=== PATIENT | female | born 1995 | race Caucasian/White ===

== ENCOUNTER 2020-02-15 21:54 | Observation (INO) | payer MEDICAID, SELFPAY ==
--- NOTE | 2020-02-15 | ECG_ITS ---
Test Reason : CHEST PAIN Blood Pressure : / mmHG Vent. Rate : 096 BPM Atrial Rate : 096 BPM P-R Int : 136 ms QRS Dur : 078 ms QT Int : 346 ms P-R-T Axes : 050 042 055 degrees QTc Int : 437 ms Normal sinus rhythm Normal ECG No previous ECGs available Referred By: Jonelle Sheets Electronically Signed By:ANGÉLICA BACON MD
--- NOTE | 2020-02-15 22:05 | ED_ITS ---
HPI - Chest Pain General Chief Complaint: Chest Pain Stated Complaint: CHEST PAIN Time Seen by Provider: 02/15/20 22:05 Source: patient Mode of arrival: ambulatory Limitations: no limitations History of Present Illness MD complaint: chest pain and other (upper abdominal pain) Pertinent past history: other (s/p c section 2 weeks ago ) Onset (ago): hour(s) (7 hours ago) Timing of current episode: constant Onset: during rest and during exertion Pain location: left chest Pain radiation: none Severity: moderate Quality: sharp Relieving factors: nothing Exacerbating factors: inspiration and movement Context: recent surgery and recent immobilization Associated symptoms: dyspnea Treatment prior to arrival: none Related Data Home Medications Medication Instructions Recorded Confirmed ferrous sulfate [Iron (ferrous 325 mg PO DAILY 02/16/20 02/16/20 sulfate)] ibuprofen [Motrin] 500 mg PO Q6H 02/16/20 02/16/20 Previous Rx's Medication Instructions Recorded famotidine [Pepcid] 20 mg PO DAILY #30 tab 02/16/20 ondansetron 4 mg PO Q8H PRN #20 tab 02/16/20 oxycodone 5 mg PO TID PRN #10 cap 02/16/20 Allergies Allergy/AdvReac Type Severity Reaction Status Date / Time kiwi [KIWI] Allergy Severe ANAPHYLAXIS Verified 02/16/20 03:33 Review of Systems Review of Systems: Constitutional : No Weight loss, No Fever, No Chills ENT/Mouth : No sore throat, No Rhinorrhea Eyes: No Eye Pain, No Swelling Cardiovascular : pos Chest Pain, pos SOB, no Dyspnea on Exertion, No Orthopnea, No Edema, No Palpitations Respiratory : No Cough, No Sputum Gastrointestinal : pos Nausea, No Vomiting, No Diarrhea, POS abdominal Pain, No Hematochezia, No Melena Genitourinary : No Dysuria, No Urinary Frequency Musculoskeletal : No joint pain, No Myalgias, No Joint Swelling Skin : No Skin Lesions, No rash Neuro : No Weakness, No Numbness, No Dizziness, No Headache Psych : No Anxiety/Panic, No Depression Heme/Lymph: No Bruising, No Lymphadenopathy Endocrine : No Polyuria, No Polydipsia All other systems reviewed and are negative PMFSH Past Medical History Attestation statement: The following information was validated with the patient. Medical History (Updated 02/16/20 @ 02:49 by Jonelle Sheets DO) No known health problems Surgical History (Updated 02/15/20 @ 22:17 by Jonelle Sheets DO) Previous section Social History Social History (Updated 02/15/20 @ 22:17 by Jonelle Sheets DO) Alcohol intake: never Smoking Status: Never smoker Use of substances other than those prescribed or required for medical reasons: No Advance Directives: No Advance Directives Information Provided: Yes Physical Exam Vital Signs: Vital Signs: Last Vital Signs Temp 98.3 F 02/16/20 02:54 Pulse 64 02/16/20 02:54 Resp 16 02/16/20 02:54 BP 119/75 02/16/20 02:54 Pulse Ox 95 02/16/20 02:54 Body Mass Index 56.9 Appearance: Alert. Oriented X3. No acute distress. Eyes: Pupils equal, round and reactive to light. ENT: Pharynx normal. Neck: Normal inspection. Neck supple. CVS: Normal heart rate and rhythm. Pulses normal. Chest: ttp along L lower chest wall that reproduces pain Respiratory: No respiratory distress. Breath sounds normal. Abdomen: Soft and mild epigastric ttp mild Smallwood's sign. incision is c/d/i and well healed Skin: Skin warm and dry. slightly pale skin color. Normal skin turgor. Extremities: No lower extremity edema. No calf ttp Neuro: Oriented X 3. No motor deficit. No sensory deficit. Course Course Course Narrative: no RUQ pain but has elevated liver enzymes normal plts and normal BP seems atypical for HELLP - US ordered to assess liver and GB call from Radiology 1248am - no PE noted in lungs, patulous esophagus ?mass possible cannot rule out, no perforation noted would recommend gastrograffin and study to assess for any disease increase in LFTs but no other signs of HELLP (has normal bili, no overt anemia out of expected proportion, normal plts, LDH under 600, normal BP, no edema, no signs of bleeding on US) and she has RUQ pain and pos Smallwood's sign on exam and US suspect this is GB pathology - she does not want to stay I told her she likely needs her gallbladder out given her she needs to go home and figure out childcare upon discharge the patient now agrees to stay will send message to Dr. Garcia and review case infection suspected of GB at this time now that patient is staying - 247am, cultures, lactic acid ordered Dr. Garcia will admit patient recommends starting zosyn and will admit discussed lab and US findings with Dr. Arias just to confirm this is not HELLP - no signs of HELLP at this time after review MDM - Chest Pain MDM Narrative Medical decision making narrative: 24 yo female s/p section 2 weeks ago no issues during per her did have some blood loss during surgery per her reports comes in with L sided pleuritic chest pain that is reproduceable in nature along with epigastric and RUQ pain at this time will need labs, EKG, CTA:PE for VTE given high risk, refuses medications for pain at this time, unlikely to be ACS but troponin at 6 hr diane ordered, patient is not , could also be abdominal pathology - HELLP labs ordered Differential Diagnosis Differential diagnosis: Likely atypical chest pain and costochondritis Lab Data Result diagrams: 02/15/20 22:17 02/15/20 22:17 Labs: Lab Results 02/15/20 02/15/20 02/15/20 Range/Units 22:17 22:17 22:17 WBC 14.3 H (4.8-10.8) X10*3/uL RBC 4.08 L (4.20-5.50) X10*6/uL Hgb 11.8 L (12.0-16.0) g/dl Hct 36.5 L (37-47) % MCV 89.5 (80-98) fL MCH 28.9 (27.0-33.0) pg MCHC 32.3 (31.0-35.0) g/dl RDW 12.2 (11.0-16.0) % Plt Count 462 H (160-400) X10*3/uL MPV 9.3 L (9.4-12.3) fL Immature Gran % (Auto) 0.4 (0.0-0.4) % Neut % (Auto) 83.9 H (45-73) % Lymph % (Auto) 7.9 L (20-40) % [place] % (Auto) 6.2 (2-11) % Eos % (Auto) 1.3 (0-4) % Baso % (Auto) 0.3 (0-2) % Lymph # (Auto) 1.1 L (1.2-4.9) X10*3/uL [place] # (Auto) 0.9 (0.1-1.2) X10*3/uL Eos # (Auto) 0.2 (0.0-0.4) X10*3/uL Baso # (Auto) 0.1 (0.0-0.2) X10*3/uL Abs Immat Gran (auto) 0.06 H (0.00-0.03) X10*3/uL Absolute Neuts (auto) 12.0 H (2.0-8.3) X10*3/uL Absolute Nucleated RBC 0.000 (0.0-0.012) X10*3/uL Nucleated RBC % (auto) 0.0 (0.0-0.2) /100WBC PT 11.7 (10.8-13.0) SEC INR 1.0 (0.9-1.1) APTT 34.2 (24.1-38.0) SEC Sodium 139 (135-145) mmol/L Potassium 4.0 (3.3-5.1) mmol/l Chloride 102 (96-108) mmol/L Carbon Dioxide 25 (22-29) mmol/L Anion Gap 16 (12-20) BUN 9 (9-16) mg/dL Creatinine 0.88 (0.5-1.4) mg/dL Estim Creat Clear Calc 153.6 Estimated GFR > 60 Random Glucose 113 (60-115) mg/dL Calcium 9.0 (8.4-10.2) mg/dL Magnesium 1.9 (1.6-2.6) mg/dL Total Bilirubin 0.7 (0.0-1.0) mg/dL Direct Bilirubin 0.3 (0.0-0.5) mg/dL AST 92 H (5-31) U/L ALT 57 H (0-31) U/L Alkaline Phosphatase 128 H (39-117) U/L Lactate Dehydrogenase (122-220) U/L Troponin I High Sens (<3.5-17.0) ng/L B-Natriuretic Peptide (<100) pg/mL Total Protein 7.2 (6.5-8.0) g/dL Albumin 4.4 (3.5-5.0) g/dL Lipase 54 (8-78) U/L 11/20/20 11/21/20 Range/Units 22:17 01:19 WBC (4.8-10.8) X10*3/uL RBC (4.20-5.50) X10*6/uL Hgb (12.0-16.0) g/dl Hct (37-47) % MCV (80-98) fL MCH (27.0-33.0) pg MCHC (31.0-35.0) g/dl RDW (11.0-16.0) % Plt Count (160-400) X10*3/uL MPV (9.4-12.3) fL Immature Gran % (Auto) (0.0-0.4) % Neut % (Auto) (45-73) % Lymph % (Auto) (20-40) % [place] % (Auto) (2-11) % Eos % (Auto) (0-4) % Baso % (Auto) (0-2) % Lymph # (Auto) (1.2-4.9) X10*3/uL [place] # (Auto) (0.1-1.2) X10*3/uL Eos # (Auto) (0.0-0.4) X10*3/uL Baso # (Auto) (0.0-0.2) X10*3/uL Abs Immat Gran (auto) (0.00-0.03) X10*3/uL Absolute Neuts (auto) (2.0-8.3) X10*3/uL Absolute Nucleated RBC (0.0-0.012) X10*3/uL Nucleated RBC % (auto) (0.0-0.2) /100WBC PT (10.8-13.0) SEC INR (0.9-1.1) APTT (24.1-38.0) SEC Sodium (135-145) mmol/L Potassium (3.3-5.1) mmol/l Chloride (96-108) mmol/L Carbon Dioxide (22-29) mmol/L Anion Gap (12-20) BUN (9-16) mg/dL Creatinine (0.5-1.4) mg/dL Estim Creat Clear Calc Estimated GFR Random Glucose (60-115) mg/dL Calcium (8.4-10.2) mg/dL Magnesium (1.6-2.6) mg/dL Total Bilirubin (0.0-1.0) mg/dL Direct Bilirubin (0.0-0.5) mg/dL AST 186 H (5-31) U/L ALT 121 H (0-31) U/L Alkaline Phosphatase (39-117) U/L Lactate Dehydrogenase 377 H (122-220) U/L Troponin I High Sens < 3.5 (<3.5-17.0) ng/L B-Natriuretic Peptide < 10 (<100) pg/mL Total Protein (6.5-8.0) g/dL Albumin (3.5-5.0) g/dL Lipase (8-78) U/L ECG Data ECG #1: Attestation: I personally reviewed and interpreted this ECG as follows: ECG interpretation date: 02/15/20 ECG interpretation time: 22:06 Interpretation: Rate: 96 Rhythm: NSR [place]: normal Normal P waves. Normal LI. Normal QRS complex. ST T wave : normal qTC: normal prior studies: no acute ischemia The study has been interpreted contemporaneously by me. . Discharge Plan Discharge Clinical Impression: Elevated liver function tests, Biliary colic, Esophagitis, Cholecystitis Patient Disposition: Admitted As Inpatient
[2020-02-15 22:08] VITALS: BP 113/71; PULSE 92; RESP 15; TEMP 36.9; O2SAT 97; BMI 56.9
[2020-02-15 22:14] VITALS: BP 113/71; PULSE 85; PULSE 92; RESP 15; TEMP 36.9; O2SAT 97
--- NOTE | 2020-02-15 22:14 | PC.NURSE ---
Pt assisted from the waiting room into room 20. EKG obtained in Triage. IV established, labs obtained and sent. MD at bedside for primary eval, pt aware of plan for CTA. Continue to monitor.
[2020-02-15] MEDS: 0.9 % Sodium Chloride 1,000 ML 999 ML IVCONT (22:17)
[2020-02-15 22:25] LABS: Basophils Absolute Auto 0.1 X10*3/uL (0.0-0.2); Basophils Percent Auto 0.3 % (0-2); Eosinophils Absolute Auto 0.2 X10*3/uL (0.0-0.4); Eosinophils Percent Auto 1.3 % (0-4); Hematocrit 36.5 % (37-47); Hemoglobin 11.8 g/dl (12.0-16.0); Imm Gran Abs Auto 0.06 X10*3/uL (0.00-0.03); Imm Gran Pct Auto 0.4 % (0.0-0.4); Lymphocytes Absolute Auto 1.1 X10*3/uL (1.2-4.9); Lymphocytes Percent Auto 7.9 % (20-40); MANUAL DIFF FLAG NO; Mean Corpuscular HGB Conc 32.3 g/dl (31.0-35.0); Mean Corpuscular Hemoglobin 28.9 pg (27.0-33.0); Mean Corpuscular Volume 89.5 fL (80-98); Mean Platelet Volume 9.3 fL (9.4-12.3); Monocytes Absolute Auto 0.9 X10*3/uL (0.1-1.2); Monocytes Percent Auto 6.2 % (2-11); Neutrophils Percent Auto 83.9 % (45-73); Platelet Count 462 X10*3/uL (160-400); Red Blood Count 4.08 X10*6/uL (4.20-5.50); Red Cell Distribution Width 12.2 % (11.0-16.0); White Blood Count 14.3 X10*3/uL (4.8-10.8)
[2020-02-15 22:45] LABS: Prothrombin Time 11.7 SEC (10.8-13.0)
[2020-02-15 22:48] LABS: Partial Thromboplastin Time 34.2 SEC (24.1-38.0)
[2020-02-15 22:50] LABS: Alanine Aminotransferase 57 U/L (0-31); Albumin Level 4.4 g/dL (3.5-5.0); Alkaline Phosphatase 128 U/L (39-117); Anion Gap 16 (12-20); Aspartate Amino Transferase 92 U/L (5-31); Bilirubin Direct 0.3 mg/dL (0.0-0.5); Bilirubin Total 0.7 mg/dL (0.0-1.0); Blood Urea Nitrogen 9 mg/dL (9-16); Carbon Dioxide 25 mmol/L (22-29); Chloride 102 mmol/L (96-108); Creatinine Clr Calc Pharmacy 153.6; Estimated Glomerular Filt Rate > 60; Glucose Random 113 mg/dL (60-115); Lipase 54 U/L (8-78); Magnesium 1.9 mg/dL (1.6-2.6); Sodium 139 mmol/L (135-145); Total Protein 7.2 g/dL (6.5-8.0)
[2020-02-15 22:57] LABS: B Type Natriuretic Peptide < 10 pg/mL (<100); Troponin-I High Sensitivity < 3.5 ng/L (<3.5-17.0)
[2020-02-15 23:09] VITALS: BP 107/74; PULSE 83; RESP 16; TEMP 36.7; O2SAT 100
--- NOTE | 2020-02-16 | US_ITS ---
EXAMINATION: US ABDOMEN LIMITED CLINICAL INFORMATION: Epigastric pain. COMPARISON: None TECHNIQUE: Real-time imaging of the right upper quadrant abdominal viscera. FINDINGS: PANCREAS: The visualized proximal portion of the pancreas is unremarkable. The distal portion is obscured secondary to overlying bowel gas. LIVER: The liver is normal in size. The liver contour is normal. Parenchymal echogenicity is normal. No focal hepatic lesion. There is no intrahepatic biliary duct dilatation seen. GALLBLADDER: Multiple gallstones are present, and there is mild gallbladder wall thickening to 0.5 cm. No appreciable pericholecystic fluid. Right upper quadrant tenderness was reported during the exam. COMMON BILE DUCT: Normal in caliber measuring 0.2 cm in diameter. RIGHT KIDNEY: No hydronephrosis. No renal calculi or focal parenchymal lesions. The kidney measures 11.1 cm in maximum dimension. FREE FLUID: None. US/US abdomen limited IMPRESSION: Cholelithiasis. Mild gallbladder wall thickening is also present, which could represent developing changes of acute cholecystitis in the proper clinical setting.
--- NOTE | 2020-02-16 | CT_ITS ---
EXAMINATION: CT ANGIOGRAM OF THE CHEST WITH AND WITHOUT CONTRAST (CT PULMONARY ANGIOGRAM FOR PE) CLINICAL INFORMATION: Reason for Exam pleuritic chest pain COMPARISON: None TECHNIQUE: Prior to contrast administration, noncontrast localization images were obtained. Subsequently, multidetector volumetric imaging was performed from the thoracic inlet to below the diaphragms following the administration of 80 mL Omnipaque 350 intravenous contrast. No contrast reaction reported Sagittal, coronal, and MIP oblique sagittal reformatted images were obtained on the CT workstation, uploaded to PACS, and reviewed. This CT examination was performed using dose optimization techniques as appropriate, variously including the following: *Automated exposure control *Adjustment of mA and/or kV according to patient size (this includes techniques or standardized protocols for targeted exams where dose is matched to indication/reason for exam; i.e. extremities or head) *Use of iterative reconstruction technique Total exam dose-length product 202 mGy-cm FINDINGS: QUALITY OF STUDY/CONTRAST BOLUS: Satisfactory. PULMONARY ARTERIES: No central or segmental pulmonary emboli. No filling defect to suggest a pulmonary embolism. The thoracic inlet is within normal limits. There is no bulky central adenopathy. Patulous esophagus felt to be present. No significant infiltrate or effusion in the lungs. The patulous esophagus extends the level of the GE junction and there is air below this which may be associated with the gastric wall medially. There may be a mass at the GE junction. Review of the bone windows does not demonstrate evidence for lesion. CT/CT angio chest PE protocol IMPRESSION: No filling defect to suggest a pulmonary embolism. Very patulous esophagus and I cannot exclude a mass in the region of the GE junction. There is a sliver of air immediately adjacent medially which may be within the stomach. Interstitial air in the stomach wall cannot be excluded or a small perforation cannot be completely excluded but this would seem less likely. Correlation recommended clinically. Consider direct visualization and/or Gastrografin swallow This critical result was discussed with Dr. Sheets at 12:50 AM on 02/16/2020 and it was ascertained that the content and urgency of the report was understood at the time of direct communication.
--- NOTE | 2020-02-16 00:09 | PC.NURSE ---
Pt ambulating to the bathroom and to CT with a patel/steady gait. Pt aware of plan for U/S following CT. Continue to monitor.
[2020-02-16] MEDS: iohexoL 350 MG/ML 100 ML INFUS..BTL 65 ML IV (00:31)
[2020-02-16 00:48] VITALS: BP 113/70; PULSE 63; RESP 16
--- NOTE | 2020-02-16 00:54 | CT_ITS ---
EXAMINATION: CT CHEST WITHOUT CONTRAST CLINICAL INFORMATION: With small to rule out perforation/mass COMPARISON: CT from earlier today TECHNIQUE: Multidetector volumetric CT imaging of the chest was done. Oral contrast was administered at the time of scanning. Axial MIP volume rendering provided. Sagittal and coronal reformatted images were obtained. This CT examination was performed using dose optimization techniques as appropriate, variously including the following: *Automated exposure control *Adjustment of mA and/or kV according to patient size (this includes techniques or standardized protocols for targeted exams where dose is matched to indication/reason for exam; i.e. extremities or head) *Use of iterative reconstruction technique DLP: 397 mGy-cm FINDINGS: LUNGS: No regions of consolidation bilaterally. There are a few scattered nonspecific tiny nodules bilaterally measuring 2 to 3 mm which are best seen on MIP series 11, such as in the left upper lobe on images 57 and 60 and in the right upper lobe such as on image 60. MEDIASTINUM: The visualized thyroid gland is unremarkable. There are subcentimeter mediastinal lymph nodes within the range of normal variation. Cardiac size is within normal limits; no pericardial effusion. Gaseous distention of the esophagus is redemonstrated, most prominently in the lower esophagus. There is scattered oral contrast material within the esophagus. PLEURA: No pneumothorax. Suggestion of trace pleural effusions. AXILLA: No lymphadenopathy. UPPER ABDOMEN: There is redemonstration of a small amount of gas along the right lateral margin of the proximal stomach, similar to prior. An additional slightly delayed scan was performed which demonstrated oral contrast tracking through this region into the remainder of the stomach, most consistent with gas being intraluminal in location. Excreted contrast is noted in the renal pelvises. OSSEOUS STRUCTURES: Unremarkable. CT/CT chest wo con IMPRESSION: 1. No findings to suggest perforation at the proximal stomach. As previously noted, there is gaseous distention of much of the esophagus, which can be seen with reflux or dysmotility. Possibility of a mass cannot be reliably excluded on CT, and overall assessment of esophageal function and the gastroesophageal junction would be better performed with a fluoroscopic upper GI examination or endoscopy. 2. Few scattered tiny lung nodules bilaterally, nonspecific and statistically likely benign in the absence of clinical risk factors. 3. Suggestion of trace pleural effusions.
--- NOTE | 2020-02-16 01:09 | PC.NURSE ---
Pt returns to CT for additional scan. Per MD Sheets, plan to obtain repeat LFTs upon return from CT.
--- NOTE | 2020-02-16 01:23 | PC.NURSE ---
Pt returns from CT, repeat bloodwork obtained and sent. Pt resting in bed, VSS. Continue to monitor.
[2020-02-16 02:15] LABS: Alanine Aminotransferase 121 U/L (0-31); Aspartate Amino Transferase 186 U/L (5-31)
--- NOTE | 2020-02-16 02:37 | PC.NURSE ---
This RN at bedside discussing pt condition and her plan to go home. Pt asking to call her mother to see if she can figure out childcare and [place] [facility] Continue to monitor.
[2020-02-16 02:54] VITALS: BP 119/75; PULSE 64; RESP 16; TEMP 36.8; O2SAT 95
--- NOTE | 2020-02-16 03:08 | PC.NURSE ---
BCX x 2, lactic and Covid swab obtained and sent.
[2020-02-16 03:16] LABS: Lactate Dehydrogenase 377 U/L (122-220)
[2020-02-16] MEDS: Piperacillin Sodium/Tazobactam 3.375 GM in 0.9 % Sodium Chloride 50 ML IV (03:22)
[2020-02-16] MEDS: 0.9 % Sodium Chloride 1,000 ML 100 ML IVCONT (03:22)
--- NOTE | 2020-02-16 03:25 | PC.NURSE ---
Pt medicated per [facility].
[2020-02-16 04:09] LABS: Lactic Acid 1.7 mmol/L (0.5-2.0)
[2020-02-16 04:14] LABS: COVID-19 Test Negative (Negative)
--- NOTE | 2020-02-16 04:43 | PC.NURSE ---
[facility] unable to take report at this time, [facility] to call back.
--- NOTE | 2020-02-16 05:02 | PC.NURSE ---
Report given to [facility], pt being prepared for transport to floor.
[2020-02-16 07:33] LABS: MANUAL DIFF FLAG NO
[2020-02-16 07:43] VITALS: BP 122/77; PULSE 58; RESP 16; TEMP 36.7; O2SAT 99
[2020-02-16 07:43] LABS: Basophils Percent Auto 0.3 % (0-2); Eosinophils Absolute Auto 0.3 X10*3/uL (0.0-0.4); Eosinophils Percent Auto 4.1 % (0-4); Hematocrit 30.7 % (37-47); Hemoglobin 9.9 g/dl (12.0-16.0); Imm Gran Abs Auto 0.02 X10*3/uL (0.00-0.03); Imm Gran Pct Auto 0.3 % (0.0-0.4); Lymphocytes Absolute Auto 1.3 X10*3/uL (1.2-4.9); Lymphocytes Percent Auto 20.8 % (20-40); Mean Corpuscular HGB Conc 32.2 g/dl (31.0-35.0); Mean Corpuscular Hemoglobin 28.9 pg (27.0-33.0); Mean Corpuscular Volume 89.8 fL (80-98); Mean Platelet Volume 9.4 fL (9.4-12.3); Monocytes Absolute Auto 0.6 X10*3/uL (0.1-1.2); Monocytes Percent Auto 9.8 % (2-11); Neutrophils Percent Auto 64.7 % (45-73); Platelet Count 363 X10*3/uL (160-400); Red Blood Count 3.42 X10*6/uL (4.20-5.50); White Blood Count 6.1 X10*3/uL (4.8-10.8)
[2020-02-16 08:11] LABS: Alanine Aminotransferase 192 U/L (0-31); Albumin Level 3.4 g/dL (3.5-5.0); Alkaline Phosphatase 162 U/L (39-117); Aspartate Amino Transferase 210 U/L (5-31); Bilirubin Direct 0.2 mg/dL (0.0-0.5); Bilirubin Total 0.3 mg/dL (0.0-1.0); Total Protein 5.8 g/dL (6.5-8.0)
[2020-02-16] MEDS: 0.9 % Sodium Chloride Flush 3 ML SYRINGE IVFLUSH (08:33)
[2020-02-16 11:22] VITALS: BP 134/77; PULSE 58; RESP 18; TEMP 36.9; O2SAT 100
[2020-02-16] MEDS: Docusate Sodium 100 MG CAPSULE PO (11:22)
--- NOTE | 2020-02-16 11:33 | P.HPGS_ITS ---
History of Present Illness History of Present Illness Chief complaint: BILIARY COLIC Narrative: Su Bravo is a 24 year old female who is 2 weeks post and who presented to the emergency department early this morning with acute onset of substernal pain, nausea and vomiting. She has not had similar pain in the past. She did not have fever or chills. She does not report jaundice. Liver function studies were noted to be mildly elevated on initial testing in the ED. They were repeated a few hours later and transaminases had increased. Her pain was significantly improved at that point. Workup in the emergency department revealed the presence of gallstones with mild thickening of the gallbladder wall. She had tenderness over the gallbladder. No pericholecystic fluid was seen. The gallbladder did not appear acutely distended. Because of the increase in transaminases and the question of early acute cholecystitis, admission for observation was advised. She was given a dose of Zosyn in the emergency department. This morning, she reports that she is more comfortable. She does not have any abdominal pain. She reports that following her recent Caesarean section, her OB team informed her that she had significant scarring around the uterus making mobilization difficult. She has a history of achalasia and had surgical treatment for this via a laparoscopic approach at [facility] about 8 years ago. Review of Systems 2 Constitutional: Constitutional: Denies chills and Denies fever(s) Cardiovascular: Cardiovascular: Reports chest pain (Associated with current problem) and Denies dyspnea Respiratory: Respiratory: Denies cough, Denies dyspnea and Denies wheezing Gastrointestinal: Gastrointestinal: Denies change in stool character, Reports heartburn and Denies vomiting Genitourinary: Comments: No dysuria Musculoskeletal: Musculoskeletal: Reports no additional musculoskeletal complaints Neurologic: Denies Abnormal speech present Hematologic/Lymphatic: Hematologic/Lymphatic: Reports no additional hematologic/lymphatic complaints Allergic/Immunologic: Allergic/Immunologic: Denies wheezing PMFSH Past Medical History Medical History (Updated 02/16/20 @ 11:41 by Candi Garcia MD) Achalasia No known health problems Surgical History Surgical History Previous section Social History Social History Alcohol intake: never Smoking Status: Never smoker Use of substances other than those prescribed or required for medical reasons: No Advance Directives: No Advance Directives Information Provided: Yes Advance Directives on File: No service: No Current occupational status: employed Meds Allergies Allergy/AdvReac Type Severity Reaction Status Date / Time kiwi [KIWI] Allergy Severe ANAPHYLAXIS Verified 02/16/20 03:33 Home Medications Medication Instructions Recorded Confirmed Type ferrous sulfate [Iron (ferrous 325 mg PO DAILY 02/16/20 02/16/20 History sulfate)] ibuprofen [Motrin] 500 mg PO Q6H 02/16/20 02/16/20 History Physical Exam Vital Signs: Vital Signs: Last Vital Signs Temp 98.4 F 02/16/20 11:22 Pulse 58 02/16/20 11:22 Resp 18 02/16/20 11:22 BP 134/77 02/16/20 11:22 Pulse Ox 100 02/16/20 11:22 Body Mass Index 56.9 Const: General: healthy appearing, no acute distress and alert Orientation/consciousness: oriented to person and oriented to place HENMT: Head: Yes normal to inspection Ears: hearing grossly normal bilaterally Face and sinus: Yes normal facial exam Eyes: Conjunctivae: conjunctivae normal Sclerae: sclerae normal EOM: EOMs intact bilaterally Neck: Neck: Yes normal visual inspection and Yes trachea midline Resp: Effort & Inspection: normal respiratory effort Auscultation: clear to auscultation bilaterally Cardio: Rate: regular rate Rhythm: regular rhythm Heart sounds: no murmurs GI: Other: Round, soft, normoactive bowel sounds, tender in upper abdomen, most significant in the right upper quadrant, negative Smallwood sign Skin: Other: normal color, warm and dry Neuro: General: oriented to person and oriented to place Cognition (Neuro): normal cognition Speech: No Abnormal speech present Extrem: General: Yes normal to inspection Psych: Appearance: grossly normal Mental Status: mental status grossly normal Affect: normal affect Thought process: Normal thought process present Insight: Good insight present (Psych) Results Results Labs: Short CBC 02/15/20 02/16/20 Range/Units 22:17 07:06 WBC 14.3 H 6.1 (4.8-10.8) X10*3/uL Hgb 11.8 L 9.9 L (12.0-16.0) g/dl Hct 36.5 L 30.7 L (37-47) % Plt Count 462 H 363 (160-400) X10*3/uL BMP 02/15/20 22:17 Sodium 139 Potassium 4.0 Chloride 102 Carbon Dioxide 25 BUN 9 Creatinine 0.88 Calcium 9.0 Liver Function 02/15/20 02/16/20 02/16/20 Range/Units 22:17 01:19 07:06 Total Bilirubin 0.7 0.3 (0.0-1.0) mg/dL Direct Bilirubin 0.3 0.2 (0.0-0.5) mg/dL AST 92 H 186 H 210 H (5-31) U/L ALT 57 H 121 H 192 H (0-31) U/L Alkaline Phosphatase 128 H 162 H D (39-117) U/L Albumin 4.4 3.4 L D (3.5-5.0) g/dL Assessment and Plan (1) Biliary colic: Status: Acute She presented with biliary colic and elevated transaminases. She is improved this morning. We discussed treatment options including proceeding with laparoscopic cholecystectomy with potential need to convert to open and trial of low-fat diet with deferred surgery if she does well, considering her recent delivery and presence of a at home. She expressed a preference to undergo surgery on this admission. We discussed this. Her report of the finding of significant scar tissue at the time of her recent section increases the likelihood that she will require an open cholecystectomy. I recommended a trial of low-fat diet with discharge home if she tolerates this and plan for early return through short-stay surgery for cholecystectomy. If she fails the trial of low-fat diet, we would keep her in the hospital with plans to proceed with surgery in the next 24-48 hours. We discussed the technique of laparoscopic cholecystectomy and potential need to convert to open, which appears to be increased in her situation. We reviewed risks of surgery including but not limited to infection, bleeding, DVT and PE, retained stones, drop stones, injuries to the bile ducts or adjacent structures potentially requiring further surgery, bile leak. She agreed to proceed as recommended and low-fat diet has been ordered. (2) Elevated liver function tests: Status: Acute (3) Esophagitis: Status: Acute (4) Cholecystitis: Status: Acute Procedures Abscess I/D Date of Service: 02/16/20
--- NOTE | 2020-02-16 13:05 | MHC.CM.PN ---
Pt lives at home and is fully independent with all care and mobility. Pts current DC plan is home with no services. pt will self arrange transport
--- NOTE | 2020-02-16 13:30 | MHC.CM.PN ---
PT WILL DC HOME TODAY WITH NO SERVICES. PT WILL SELF ARRANGE TRANSPORT
[2020-02-16 15:00] VITALS: BP 111/77; PULSE 70; RESP 18; TEMP 37.1; O2SAT 99
--- NOTE | 2020-02-19 11:43 | P.DS_ITS ---
DS: Providers Provider Date of admission: 02/16/20 03:27 Primary care physician: Stephani Carr MD DS: Diagnosis Discharge Diagnosis (1) Biliary colic: Status: Acute (2) Elevated liver function tests: Status: Acute (3) Esophagitis: Status: Acute (4) Cholecystitis: Status: Acute DS: Medications Discharge Medications Home Medications: Home Medications Medication Instructions Recorded Confirmed ferrous sulfate [Iron (ferrous 325 mg PO DAILY 02/16/20 02/16/20 sulfate)] ibuprofen 500 mg PO Q6H 02/16/20 02/16/20 Previous Rx's Medication Instructions Recorded oxycodone 5 mg PO Q4H PRN #10 tab 02/18/20 DS: Summary Hospital Course Hospital Course: Brief HPI: Su Bravo is a 24 year old female who is 2 weeks post and who presented to the emergency department early this morning with acute onset of substernal pain, nausea and vomiting. She has not had similar pain in the past. She did not have fever or chills. She does not report jaundice. Liver function studies were noted to be mildly elevated on initial testing in the ED. They were repeated a few hours later and transaminases had increased. Her pain was significantly improved at that point. Workup in the emergency department revealed the presence of gallstones with mild thickening of the gallbladder wall. She had tenderness over the gallbladder. No pericholecystic fluid was seen. The gallbladder did not appear acutely distended. Because of the increase in transaminases and the question of early acute cholecystitis, admission for observation was advised. She was given a dose of Zosyn in the emergency department. This morning, she reports that she is more comfortable. She does not have any abdominal pain. She reports that following her recent Caesarean section, her OB team informed her that she had significant scarring around the uterus making mobilization difficult. She has a history of achalasia and had surgical treatment for this via a laparoscopic approach at [facility] about 8 years ago. Hospital course: Extensive discussion regarding treatment options including proceeding with laparoscopic cholecystectomy with potential need to convert to open and trial of low-fat diet with deferred surgery if she does well, considering her recent delivery and presence of a at home. Given her report of the finding of significant scar tissue at the time of her recent section increases the likelihood that she will require an open cholecystectomy and it was recommended to trial of low-fat diet with discharge home if she tolerates this and plan for early return through short-stay surgery for cholecystectomy. She agreed to proceed as recommended and low-fat diet has been ordered. She was reassessed later that day and was tolerating the diet without any recurrence of pain, nausea or vomiting. She felt ready for discharge to home with plans for elective CCY. She was discharged to home on 02/16/20 in stable condition. Status at Discharge Functional status at discharge: independent ambulation Overall status at discharge: patient is back to baseline Time Spent with Patient Time attestation: Total time spent providing and/or coordinating discharge services: Physical Exam Vital Signs: Vital Signs: Last Vital Signs Temp 98.7 F 02/16/20 15:00 Pulse 70 02/16/20 15:00 Resp 18 02/16/20 15:00 BP 111/77 02/16/20 15:00 Pulse Ox 99 02/16/20 15:00 Body Mass Index 56.9 Const: General: healthy appearing, comfortable and no acute distress Elder entation/consciousness: patient oriented x3 Eyes: Sclerae: sclerae normal Resp: Effort & Inspection: normal respiratory effort GI: Inspection: Yes incision (pfannansteil, healing well) Palpation (GI): Soft to palpation, nontender and No Rebound tenderness present Skin: General skin exam: no rashes or lesions noted Neuro: General: patient oriented x3 Extrem: General: Yes normal to inspection DS: Data Data Completed and Pending Labs on day of discharge: 02/15/20 ECG 12 lead EKG Stat 02/15/20 22:15 0.9 % Sodium Chloride [Ns] 1,000 ml IVCONT 999 mls/hr 02/15/20 22:17 B Type Natriuretic Peptide Stat Basic Metabolic Panel Stat Complete Blood Count Auto Diff Stat Lipase Stat Liver Panel Stat Magnesium Stat Partial Thromboplastin Time Stat Prothrombin Time INR Stat Troponin-I High Sensitivity Stat 02/15/20 22:19 EKG Documentation DIRECTED 02/16/20 00:00 CT angio chest PE protocol Stat US abdomen limited Stat 02/16/20 00:30 iohexoL 350 MG/ML [Omnipaque 350 MG/ML] 65 ml IV ONCE ONE 02/16/20 00:54 CT chest wo con Stat Diatrizoate Meglumine, Sodium [Gastrografin 66-10] 120 ml PO ONCE ONE 02/16/20 01:19 Alanine Aminotransferase Stat Aspartate Amino Transferase Stat Lactate Dehydrogenase Stat 02/16/20 02:47 Consult Rx Perform Med Rec 1 each MISCELLANE ONCE PRN 02/16/20 02:59 Piperacillin Sodium/Tazobactam [Zosyn] 3.375 gm 0.9 % Sodium Chloride [Ns] 50 ml IV ONCE 02/16/20 03:00 0.9 % Sodium Chloride [Ns] 1,000 ml IVCONT 100 mls/hr 02/16/20 03:05 COVID-19 ID NOW (Henry) Stat Lactic Acid Stat 02/16/20 03:06 Add Laboratory Test Stat 02/16/20 03:11 Code Status Routine Piperacillin Sodium/Tazobactam [Zosyn] 3.375 gm IV .STK-MED ONE Transfer Order Routine 02/16/20 03:18 Piperacillin Sodium/Tazobactam [Zosyn] 3.375 gm IV .STK-MED ONE 02/16/20 03:27 Morphine Sulfate 4 mg IVPUSH Q3H PRN ondansetron HCL [Zofran] 4 mg IVPUSH Q8H PRN 02/16/20 05:30 Dextrose 5 % and 0.45 % NaCl [D51/2Ns] 1,000 ml IVCONT 100 mls/hr 02/16/20 05:30 Ambulate QSHIFT WHILE AWAKE Compression Therapy QSHIFT IV insert/maintain Q4HR Intake and Output QSHIFTE Vital Signs QSHIFT 02/16/20 07:06 Complete Blood Count Auto Diff Routine Liver Panel Routine 02/16/20 08:00 0.9 % Sodium Chloride Flush [NS Flush] 3 ml IVFLUSH QSHIFT 02/16/20 09:00 Docusate Sodium [Colace] 100 mg PO BID 02/16/20 Breakfast NPO Diet Laboratory Last Values WBC 6.1 X10*3/uL (4.8-10.8) 02/16/20 07:06 RBC 3.42 X10*6/uL (4.20-5.50) L 02/16/20 07:06 Hgb 9.9 g/dl (12.0-16.0) L 02/16/20 07:06 Hct 30.7 % (37-47) L 02/16/20 07:06 MCV 89.8 fL (80-98) 02/16/20 07:06 MCH 28.9 pg (27.0-33.0) 02/16/20 07:06 MCHC 32.2 g/dl (31.0-35.0) 02/16/20 07:06 RDW 12.0 % (11.0-16.0) 02/16/20 07:06 Plt Count 363 X10*3/uL (160-400) 02/16/20 07:06 MPV 9.4 fL (9.4-12.3) 02/16/20 07:06 Immature Gran % (Auto) 0.3 % (0.0-0.4) 02/16/20 07:06 Neut % (Auto) 64.7 % (45-73) 02/16/20 07:06 Lymph % (Auto) 20.8 % (20-40) 02/16/20 07:06 Jefferson % (Auto) 9.8 % (2-11) 02/16/20 07:06 Eos % (Auto) 4.1 % (0-4) H 02/16/20 07:06 Baso % (Auto) 0.3 % (0-2) 02/16/20 07:06 Lymph # (Auto) 1.3 X10*3/uL (1.2-4.9) 02/16/20 07:06 Jefferson # (Auto) 0.6 X10*3/uL (0.1-1.2) 02/16/20 07:06 Eos # (Auto) 0.3 X10*3/uL (0.0-0.4) 02/16/20 07:06 Baso # (Auto) 0.0 X10*3/uL (0.0-0.2) 02/16/20 07:06 Abs Immat Gran (auto) 0.02 X10*3/uL (0.00-0.03) 02/16/20 07:06 Absolute Neuts (auto) 4.0 X10*3/uL (2.0-8.3) 02/16/20 07:06 Absolute Nucleated RBC 0.000 X10*3/uL (0.0-0.012) 02/16/20 07:06 Nucleated RBC % (auto) 0.0 /100WBC (0.0-0.2) 02/16/20 07:06 PT 11.7 SEC (10.8-13.0) 02/15/20 22:17 INR 1.0 (0.9-1.1) 02/15/20 22:17 APTT 34.2 SEC (24.1-38.0) 02/15/20 22:17 Sodium 139 mmol/L (135-145) 02/15/20 22:17 Potassium 4.0 mmol/l (3.3-5.1) 02/15/20 22:17 Chloride 102 mmol/L (96-108) 02/15/20 22:17 Carbon Dioxide 25 mmol/L (22-29) 02/15/20 22:17 Anion Gap 16 (12-20) 02/15/20 22:17 BUN 9 mg/dL (9-16) 02/15/20 22:17 Creatinine 0.88 mg/dL (0.5-1.4) 02/15/20 22:17 Estim Creat Clear Calc 153.6 02/15/20 22:17 Estimated GFR > 60 02/15/20 22:17 Random Glucose 113 mg/dL (60-115) 02/15/20 22:17 Lactic Acid 1.7 mmol/L (0.5-2.0) 02/16/20 03:05 Calcium 9.0 mg/dL (8.4-10.2) 02/15/20 22:17 Magnesium 1.9 mg/dL (1.6-2.6) 02/15/20 22:17 Total Bilirubin 0.3 mg/dL (0.0-1.0) 02/16/20 07:06 Direct Bilirubin 0.2 mg/dL (0.0-0.5) 02/16/20 07:06 AST 210 U/L (5-31) H 02/16/20 07:06 ALT 192 U/L (0-31) H 02/16/20 07:06 Alkaline Phosphatase 162 U/L (39-117) H D 02/16/20 07:06 Lactate Dehydrogenase 377 U/L (122-220) H 02/16/20 01:19 Troponin I High Sens < 3.5 ng/L (<3.5-17.0) 02/15/20 22:17 B-Natriuretic Peptide < 10 pg/mL (<100) 02/15/20 22:17 Total Protein 5.8 g/dL (6.5-8.0) L 02/16/20 07:06 Albumin 3.4 g/dL (3.5-5.0) L D 02/16/20 07:06 Lipase 54 U/L (8-78) 02/15/20 22:17 COVID-19 ([facility]) Negative (Negative) 02/16/20 03:05 COVID-19 Clin Com See Note 02/16/20 03:05 Preliminary micro results at discharge 02/16/20 03:05 Blood Culture - Preliminary Blood - Venous No growth after 48 hours. 02/16/20 03:05 Blood Culture - Preliminary Blood - Venous No growth after 48 hours. Discharge Plan Discharge Patient Disposition: Home, Self-Care Referrals: Candi Garcia MD [Physician] - Stephani Carr MD [Primary Care Provider] - 2 days (PLEASE COME BACK TO THE ED FOR TREATMENT OF YOUR GALLBLADDER IF YOU DO NOT COME BACK AT LEAST HAVE YOUR LIVER FUNCTION TESTS CHECKED) Discharge Medications: Continued ferrous sulfate [Iron (ferrous sulfate)] 325 mg (65 mg iron) Tablet 325 mg PO DAILY RF: 0 ibuprofen 400 mg Tablet 500 mg PO Q6H RF: 0 No Action oxycodone 5 mg tablet 5 mg PO Q4H PRN (Reason: pain) Qty: 10 RF: 0 Discharge Orders: Discharge Order (Routine); Ordered 02/16/20 Ordered By: Candi Garcia Diet: low fat, low cholesterol Activity on Discharge: No heavy lifting Patient Instructions: Iron Supplements (By mouth), Ibuprofen (By mouth), Biliary Colic (ED), Gastroesophageal Reflux Disease (ED) Discharge Date/Time: 02/16/20 16:50 Activity Restrictions/Additional Instructions: Call the office of Dr. Candi Garcia Tuesday02/18/2020, , option 1, for further instructions regarding gallbladder surgery. Do not have anything to eat or drink after midnight on Tuesday02/18/2020 until you have spoken to the office. If possible, surgery will be scheduled for Tuesday. Visit Report Forms: Patient Portal Discharge page Care Plan Goals: Return to usual diet and activity Health Concerns: Gallstones and biliary colic, recent section Plan of Treatment: Outpatient cholecystectomy to be scheduled
== END 2020-02-16 16:50 | disposition home or self-care (01) ==
LOC: HO.ED 02-16 02:46 → HO.IMC 02-16 04:35
PROVIDERS: Admitting Provider Surgery; Emergency Provider Emergency Medicine; PCP Family Medicine; Visit Provider Surgery
DX: K80.50 Calculus of bile duct without cholangitis or cholecystitis without obstruction (principal); K20.90 Esophagitis, unspecified without bleeding; K21.9 Gastro-esophageal reflux disease without esophagitis; R07.81 Pleurodynia; R10.13 Epigastric pain; R10.11 Right upper quadrant pain; R94.5 Abnormal results of liver function studies; Z20.828 Contact with and (suspected) exposure to other viral communicable diseases; Z91.018 Allergy to other foods; Z79.899 Other long term (current) drug therapy
CPT/HCPCS: 36415; 71250; 71275; 76705; 80048; 80076; 83605; 83615; 83690; 83735; 83880; 84450; 84460; 84484; 85025; 85610; 85730; 87040; 87635; 93005; 96361; 96365; 96375; 99219; 99285; J2543; Q9967

== ENCOUNTER 2020-02-18 08:55 | Day surgery (SDC) | payer MEDICAID, SELFPAY ==
[2020-02-18] VITALS (11 sets, daily range): BP systolic 129–152; BP diastolic 79–99; PULSE 54–89; RESP 13–19; TEMP 36.4–36.8; O2SAT 92–100; BMI 25.4
--- NOTE | 2020-02-18 09:52 | P.CONAN_ITS ---
[facility] Past Medical History Medical History Achalasia No known health problems Surgical History Surgical History Previous section Social History Social History Alcohol intake: never Smoking Status: Former smoker Smoking Quit Date: 2019 Second Hand Smoke Exposure: No Use of substances other than those prescribed or required for medical reasons: Yes Substance Use Frequency: Monthly Advance Directives: No Advance Directives Information Provided: Yes service: No Current occupational status: employed Meds Allergies Allergy/AdvReac Type Severity Reaction Status Date / Time kiwi [KIWI] Allergy Severe ANAPHYLAXIS Verified 02/16/20 03:33 mushroom Allergy Severe Anaphylaxis Verified 02/18/20 09:08 Home Medications Medication Instructions Recorded Confirmed Type ferrous sulfate [Iron (ferrous 325 mg PO DAILY 02/16/20 02/16/20 History sulfate)] ibuprofen 500 mg PO Q6H 02/16/20 02/16/20 History Exam Exam Date and Time: February 18, 2020 0952 Height,Weight and Vital Signs: Height 5 ft 6 in Weight 71.668 kg Last Vital Signs Temp 97.6 F 02/18/20 09:23 Pulse 76 02/18/20 09:23 Resp 18 02/18/20 09:23 BP 129/79 02/18/20 09:23 Pulse Ox 98 02/18/20 09:23 Airway Mallampati Class: I TM Dist: >3cm Neck ROM: Full Loose/Missing/Broken Teeth: No Heart: RRR Lungs: CTA Assessment and Plan Assessment Anesthesia Assessment: Anesthesia Plan Discussed and Chart Reviewed Final Anesthetic Review NPO: Yes ASA Class: I and II Final Preanesthetic Review: Meds/Allgs Chart Reviewed, Consent Obtained/Reviewed and Anes Risks/Benef Reviewed Patient Risk: Low Procedure Risk: Intermediate Anesthetic Plan Anesthetic Plan: GA Disposition: Standard PACU
[2020-02-18] MEDS: Lactated Ringers 1,000 ML 50 ML IVCONT (11:09)
--- NOTE | 2020-02-18 11:15 | MHC.SHP ---
Pre-Procedural Eval Section A The patient is an INPATIENT: No The History & Physical has been completed within 30 days and I have reviewed it.: Yes Section B Chief Complaint: acute cholecystitis Allergies: Allergies Allergy/AdvReac Type Severity Reaction Status Date / Time kiwi [KIWI] Allergy Severe ANAPHYLAXIS Verified 02/16/20 03:33 mushroom Allergy Severe Anaphylaxis Verified 02/18/20 09:08 Plan Patient has been examined and remains a candidate for the planned procedure
--- NOTE | 2020-02-18 12:32 | W.PM.OPN ---
Operative Note Operative Note Date of Service: 02/18/20 Narrative: Preoperative diagnosis: Chronic cholecystitis and cholelithiasis Postoperative diagnosis: Same Procedure: Laparoscopic cholecystectomy [facility] Specialist: Carmen Suárez PA-C Anesthesia: general endotracheal Estimated: blood loss: 5 cc Specimen: Gallbladder Immediate complications: None Findings: The gallbladder did not appear inflamed. The uterus was adherent to the anterior abdominal wall. Indications: This is a 24-year-old female who is 2 weeks and had onset of substernal chest pain 3 nights ago. Workup revealed gallstones. Procedure in detail: With the patient in the supine position following induction of adequate general anesthesia, the abdomen was prepped with ChloraPrep and was draped sterilely. Time-out procedure was performed. 2 g of cefotetan were infused for antibiotic prophylaxis and each trocar site was infiltrated with local anesthetic prior to making incisions. A supraumbilical incision was made and was carried into the subcutaneous tissues and down to the level the fascia. The fascia was elevated in the midline with Gildardo clamp and holding sutures of 0 Polysorb were placed on either side. The Gildardo was released and the fascia was split in the midline. The peritoneal cavity was entered. The Khurram trocar was inserted and stabilized with the fascial sutures. The abdomen was insufflated with carbon dioxide to a pressure 15 mm of mercury and the 0 degree 5 mm laparoscopic was inserted. The peritoneal cavity was visualized. The uterus was noted to be adherent to the lower midline abdominal wall. No other abnormalities were seen. She was positioned in reverse Trendelenburg and rotated left side down. 5 mm trocars were placed in the right upper quadrant, 1 just to the right of the midline about a quarter of the way between the xiphoid and umbilicus, 1 in the midclavicular line and 1 in the axillary line a few cm below the costal margin. The gallbladder was then grasped along the fundus at about the anterior liver margin and was retracted cephalad. It was grasped along the infundibulum and retracted laterally. In order to improve visualization for isolation of the cystic duct, the laparoscopic was exchanged for a 5 mm 30 degree. Dissection was then initiated on the infundibulum and was carried medially to expose the cystic duct gallbladder junction. This was dissected free circumferentially. The cystic artery was identified and was also dissected free circumferentially. Dissection continued along the superomedial aspect of the gallbladder lateral to the junction with the cystic artery in order to obtain the critical view. Once this was achieved, the cystic duct was doubly clipped on the patient's side, singly clipped the junction with the gallbladder and divided between clips. The cystic artery was triply clipped on the patient's side and singly clipped on the gallbladder side and divided between clips. Remaining attachments between gallbladder and liver were then taken down with the cautery hook. There was no significant bleeding. Once the gallbladder was freed, the laparoscopic was removed and reinserted through the upper medial trocar. The specimen pouch was inserted through the umbilical trocar and was advanced into the right upper quadrant. The gallbladder was placed into the pouch and the pouch was closed and withdrawn. The Khurram trocar was reinserted. The abdominal cavity was visualized. No abnormalities were noted. No bleeding was present at the surgical site. The right upper quadrant was copiously irrigated with saline solution was again inspected. Clips were confirmed to be intact on the cystic duct and cystic artery stumps. Patient was returned to the supine position. Upper abdominal trocars were removed under direct vision. No bleeding was noted. Insufflation was discontinued and gas was passively evacuated from the peritoneal cavity. The Khurram trocar was removed and fascia at the Khurram site was closed with a [id number] suture of 0 Polysorb. The holding sutures were tied to 1 another. Skin incisions were closed with subcuticular sutures of 4-0 Polysorb and Steri-Strips and dry sterile dressings were applied. She tolerated the procedure well and was transported to the recovery room in stable condition. There were no immediate complications.
[2020-02-18] MEDS: oxyCODONE HCl Immed Release 5 MG TABLET 10 MG PO (12:44)
[2020-02-18] MEDS: fentaNYL citrate/PF 100 MCG/2 ML VIAL 50 MCG IVPUSH ×2 (12:45→12:51)
== END 2020-02-18 14:31 | disposition home or self-care (01) ==
PROVIDERS: Visit Provider Surgery
PROC: 0FT44ZZ Resection of Gallbladder, Percutaneous Endoscopic Approach (ICD-10-PCS; CPT 47562; principal; 2020-02-18 10:00)
DX: O99.63 Diseases of the digestive system complicating the puerperium (principal); K80.10 Calculus of gallbladder with chronic cholecystitis without obstruction
CPT/HCPCS: 47562; 88304; J1100; J1885; J2250; J2405; J3010

== ENCOUNTER → 2020-03-04 14:03 | Outpatient (BNVA) | payer MEDICAID, SELFPAY | PROVIDERS: PCP Family Medicine; Referring Provider Family Medicine; Visit Provider Surgery | DX: K81.9 Cholecystitis, unspecified (principal); Z90.49 Acquired absence of other specified parts of digestive tract | CPT/HCPCS: 99212 ==

== ENCOUNTER 2020-04-09 16:00 | Outpatient (REF) | payer OTHER, SELFPAY ==
[2020-04-09 16:27] LABS: COVID-19 Test Negative (Negative); IDNOW Serial# 55D5AD1C
== END 2020-04-09 16:01 | disposition home or self-care (01) ==
LOC: HO.EMPCOV 16:00
PROVIDERS: PCP Family Medicine; Visit Provider Internal Medicine
DX: Z20.822 Contact with and (suspected) exposure to COVID-19 (principal)
CPT/HCPCS: 36415; 87635; C9803

== ENCOUNTER 2020-04-15 06:47 | Outpatient (REF) | payer OTHER, SELFPAY ==
[2020-04-15 07:16] LABS: COVID-19 Test Negative (Negative)
== END 2020-04-15 06:48 | disposition home or self-care (01) ==
LOC: HO.EMPCOV 06:47
PROVIDERS: Visit Provider Internal Medicine
DX: Z20.822 Contact with and (suspected) exposure to COVID-19 (principal)
CPT/HCPCS: 36415; 87635; C9803

== ENCOUNTER 2020-04-28 09:54 | Outpatient (REF) | payer MEDICAID, SELFPAY ==
[2020-04-28 11:38] LABS: MANUAL DIFF FLAG NO
[2020-04-28 11:49] LABS: Basophils Percent Auto 0.3 % (0-2); Eosinophils Absolute Auto 0.1 X10*3/uL (0.0-0.4); Eosinophils Percent Auto 2.2 % (0-4); Hematocrit 36.1 % (37-47); Hemoglobin 11.9 g/dl (12.0-16.0); Imm Gran Abs Auto 0.02 X10*3/uL (0.00-0.03); Imm Gran Pct Auto 0.3 % (0.0-0.4); Lymphocytes Absolute Auto 2.3 X10*3/uL (1.2-4.9); Lymphocytes Percent Auto 36.1 % (20-40); Mean Corpuscular Hemoglobin 28.2 pg (27.0-33.0); Mean Corpuscular Volume 85.5 fL (80-98); Mean Platelet Volume 9.3 fL (9.4-12.3); Monocytes Absolute Auto 0.5 X10*3/uL (0.1-1.2); Monocytes Percent Auto 8.1 % (2-11); Neutrophils Absolute Auto 3.4 X10*3/uL (2.0-8.3); Platelet Count 381 X10*3/uL (160-400); Red Blood Count 4.22 X10*6/uL (4.20-5.50); Red Cell Distribution Width 13.5 % (11.0-16.0); White Blood Count 6.3 X10*3/uL (4.8-10.8)
[2020-04-28 12:16] LABS: Alanine Aminotransferase 36 U/L (0-31); Albumin Level 4.7 g/dL (3.5-5.0); Alkaline Phosphatase 86 U/L (39-117); Anion Gap 12 (12-20); Aspartate Amino Transferase 21 U/L (5-31); Bilirubin Total 0.3 mg/dL (0.0-1.0); Blood Urea Nitrogen 8 mg/dL (9-16); Calcium 9.2 mg/dL (8.4-10.2); Carbon Dioxide 28 mmol/L (22-29); Chloride 103 mmol/L (96-108); Estimated Glomerular Filt Rate > 60; Glucose Random 77 mg/dL (60-115); Potassium 3.9 mmol/L (3.3-5.1); Sodium 139 mmol/L (135-145); Total Protein 7.5 g/dL (6.5-8.0)
== END 2020-04-28 09:55 | disposition home or self-care (01) ==
LOC: HO.LAB 09:54
PROVIDERS: PCP Family Medicine; Visit Provider Physician Assistant
DX: R10.13 Epigastric pain (principal); R74.01 Elevation of levels of liver transaminase levels; R10.11 Right upper quadrant pain; K21.9 Gastro-esophageal reflux disease without esophagitis; Z79.899 Other long term (current) drug therapy; Z90.49 Acquired absence of other specified parts of digestive tract
CPT/HCPCS: 36415; 80053; 85025; 99202

== ENCOUNTER 2020-04-29 08:33 | Outpatient (REF) | payer MEDICAID, SELFPAY ==
--- NOTE | 2020-04-29 08:35 | US_ITS ---
EXAMINATION: US ABDOMEN COMPLETE CLINICAL INFORMATION: Elevated liver enzymes.. COMPARISON: None TECHNIQUE: Real-time imaging of the abdominal viscera. FINDINGS: PANCREAS: Normal. ABDOMINAL AORTA: The proximal, mid, and distal segments are normal in caliber. INFERIOR VENA CAVA: Visualized portions are normal. LIVER: Normal. The liver is normal in size. The liver contour is normal. Parenchymal echogenicity is normal. No focal hepatic lesion. There is no intrahepatic biliary duct dilatation seen. GALLBLADDER: Status post prior cholecystectomy. COMMON BILE DUCT: Normal in caliber measuring 0.5 cm in diameter. RIGHT KIDNEY: Normal. No hydronephrosis. No renal calculi or focal parenchymal lesions. The kidney measures 10.7 cm in maximum dimension. LEFT KIDNEY: Normal. No hydronephrosis. No renal calculi or focal parenchymal lesions. The kidney measures 10.4 cm in maximum dimension. SPLEEN: Normal. The spleen measures 10.7 cm in maximum dimension. FREE FLUID: None. US/US abdomen complete IMPRESSION: Status post prior cholecystectomy. Otherwise, normal abdominal sonogram. No acute findings.
== END 2020-04-29 08:34 | disposition home or self-care (01) ==
LOC: HO.US 08:33
PROVIDERS: PCP Family Medicine; Visit Provider Physician Assistant
DX: R79.89 Other specified abnormal findings of blood chemistry (principal)
CPT/HCPCS: 76700

== ENCOUNTER 2020-05-06 10:30 | Day surgery (SDC) | payer MEDICAID, SELFPAY ==
--- NOTE | 2020-05-05 13:12 | P.CONAN_ITS ---
Documented by User: Lu Britt 05/05/20 13:13 HPI - Anesthesia Eval Consult details Narrative: 24yo F for Upper Endoscopy PMFSH Active Problems Active Problems: All Active Problems (Updated 04/29/20 @ 09:31 by Linh Guerrero PA-C) Acid reflux (Acute) Abdominal pain (Acute) Elevated liver function tests (Acute) Biliary colic (Acute) Cholecystitis (Acute) Past Medical History Medical History Achalasia Acid reflux Esophagitis No known health problems Surgical History Surgical History History of laparoscopic cholecystectomy Previous section Social History Social History Household Members: Children Alcohol intake: current Alcohol intake frequency: holidays/special occasions only Smoking Status: Never smoker Second Hand Smoke Exposure: No Substance Use Type: Marijuana Advance Directives: No Advance Directives Information Provided: Yes service: No Current occupational status: employed 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 Allergies Allergy/AdvReac Type Severity Reaction Status Date / Time kiwi [KIWI] Allergy Severe ANAPHYLAXIS Verified 03/04/20 14:11 mushroom Allergy Severe Anaphylaxis Verified 03/04/20 14:11 Home Medications Medication Instructions Recorded Confirmed Type ferrous sulfate [Iron (ferrous 325 mg PO DAILY 02/16/20 04/28/20 History sulfate)] omeprazole 20 mg capsule,delayed 20 mg PO DAILY 04/28/20 04/28/20 History release Exam Exam Date and Time: May 05, 2020 1312 Pertinent Lab Results Pertinent Lab Results: Laboratory Tests 04/28/20 04/28/20 11:21 11:21 WBC 6.3 Hgb 11.9 L D Hct 36.1 L Plt Count 381 Sodium 139 Potassium 3.9 Chloride 103 Carbon Dioxide 28 BUN 8 L Creatinine 0.78 Assessment and Plan Assessment Anesthesia Assessment: Chart Reviewed Documented by User: Amelia Yao 05/06/20 11:57 [facility] Past Medical History Medical History Achalasia Acid reflux Esophagitis No known health problems Surgical History Surgical History History of laparoscopic cholecystectomy Previous section Social History Social History Household Members: Children Alcohol intake: current Alcohol intake frequency: holidays/special occasions only Smoking Status: Never smoker Second Hand Smoke Exposure: No Substance Use Type: Marijuana Advance Directives: No Advance Directives Information Provided: Yes service: No Current occupational status: employed 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 Meds Allergies Allergy/AdvReac Type Severity Reaction Status Date / Time kiwi [KIWI] Allergy Severe ANAPHYLAXIS Verified 03/04/20 14:11 mushroom Allergy Severe Anaphylaxis Verified 03/04/20 14:11 Home Medications Medication Instructions Recorded Confirmed Type ferrous sulfate [Iron (ferrous 325 mg PO DAILY 02/16/20 04/28/20 History sulfate)] omeprazole 20 mg capsule,delayed 20 mg PO DAILY 04/28/20 04/28/20 History release Exam Airway Mallampati Class: I TM Dist: >3cm Neck ROM: Full Loose/Missing/Broken Teeth: No Heart: RRR Lungs: CTA Assessment and Plan Assessment Anesthesia Assessment: Anesthesia Plan Discussed and Chart Reviewed Final Anesthetic Review NPO: Yes ASA Class: II Final Preanesthetic Review: Meds/Allgs Chart Reviewed, Consent Obtained/Reviewed and Anes Risks/Benef Reviewed Patient Risk: Low Procedure Risk: Intermediate Anesthetic Plan Anesthetic Plan: MAC: Disposition: Standard PACU
[2020-05-06 11:04] VITALS: BMI 25.9
[2020-05-06 11:18] LABS: UPreg QC Valid YES; Urine Pregnancy NEGATIVE (NEGATIVE)
[2020-05-06 11:22] VITALS: BP 105/65; PULSE 74; RESP 15; TEMP 35.8; O2SAT 99
[2020-05-06] MEDS: Lactated Ringers 1,000 ML 100 ML IVCONT (11:28)
--- NOTE | 2020-05-06 12:08 | MHC.SHP ---
Pre-Procedural Eval Section B Chief Complaint: reflux disease--EPIGASTRIC PAIN Allergies: Allergies Allergy/AdvReac Type Severity Reaction Status Date / Time kiwi [KIWI] Allergy Severe ANAPHYLAXIS Verified 03/04/20 14:11 mushroom Allergy Severe Anaphylaxis Verified 03/04/20 14:11 3MONTHS AGO, GB OUT SAME TIME FRAME Plan I have reviewed the history and physical and performed a pertinent physical examination on my patient. No changes have occurred unless specified.YES
--- NOTE | 2020-05-06 12:31 | PM.PROC ---
Brief Operative Note Date of procedure: 05/06/20 Pre-op diagnosis: DYSPEPSIA, POST -3 MONTHS Post-op diagnosis: other (GR 1 DISTAL ESOPHAGITIS, FOCAL HEMORRHAGIC GASTRITIS) Procedure: EGD WITH BX FINDINGS: DISTAL ESOPHAGEAL ERYTHEMA FOR 2 CM ABOVE THE EG JUNCTION ELONGATED STOMACH--COFFEE GROUND FLECKING ANTRAL--1 EROSIONS SEEN.BX DONE DUODENAL BULB AND DUODENUM NORMAL PLAN: FOLLOWUP OFFICE/TELEVISIT--2-4 WEEKS. 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
[2020-05-06 12:36] VITALS: BP 118/62; PULSE 78; RESP 18; TEMP 36.2; O2SAT 100
[2020-05-06 12:47] VITALS: BP 118/62; PULSE 78; RESP 18; TEMP 36.1; O2SAT 100
--- NOTE | 2020-05-06 13:06 | HO.POSTANES ---
Post Anesthesia Evaluation Post Anesthesia Evaluation Vital Signs: Vital Signs Temp Pulse Resp BP Pulse Ox 05/06/20 12:47 97.0 F 78 18 118/62 100 05/06/20 12:36 97.2 F 78 18 118/62 100 05/06/20 11:22 96.5 F L 74 15 105/65 99 Anesthesia: Monitored Mental Status: Awake Pain Control: Satisfactory Nausea/Vomiting: None Hydration: Adequate Anesthesia-Related Issues: No Anes. Related Issues
== END 2020-05-06 13:25 | disposition home or self-care (01) ==
PROVIDERS: Nurse Practitioner; PCP Family Medicine; Visit Provider Internal Medicine Gastroenterology
PROC: 0DJ08ZZ Inspection of Upper Intestinal Tract, Via Natural or Artificial Opening Endoscopic (ICD-10-PCS; CPT 43235; principal; 2020-05-06 12:20)
DX: K21.00 Gastro-esophageal reflux disease with esophagitis, without bleeding (principal); K29.71 Gastritis, unspecified, with bleeding; Z79.899 Other long term (current) drug therapy; Z90.49 Acquired absence of other specified parts of digestive tract
CPT/HCPCS: 43239; 81025; 88305; 88342

== ENCOUNTER → 2020-05-20 09:44 | Outpatient (BNVA) | payer MEDICAID, SELFPAY | PROVIDERS: PCP Family Medicine; Visit Provider Physician Assistant ==

== ENCOUNTER 2020-10-21 07:19 | Outpatient (REF) | payer MEDICAID, SELFPAY ==
[2020-10-21 08:07] LABS: COVID-19 Test Negative (Negative)
== END 2020-10-21 07:20 | disposition home or self-care (01) ==
LOC: HO.LAB 07:19
PROVIDERS: Visit Provider Internal Medicine
DX: Z20.822 Contact with and (suspected) exposure to COVID-19 (principal)
CPT/HCPCS: 36415; 87635; C9803

== ENCOUNTER 2020-12-23 07:23 | Outpatient (REF) | payer MEDICAID, SELFPAY ==
[2020-12-23 08:21] LABS: COVID-19 Test Negative (Negative)
== END 2020-12-23 07:24 | disposition home or self-care (01) ==
LOC: HO.LAB 07:23
PROVIDERS: Visit Provider Internal Medicine
DX: Z20.822 Contact with and (suspected) exposure to COVID-19 (principal)
CPT/HCPCS: 36415; 87635; C9803

== ENCOUNTER 2021-01-28 07:27 | Outpatient (REF) | payer MEDICAID, SELFPAY ==
[2021-01-28 07:52] LABS: COVID-19 Test Positive (Negative)
== END 2021-01-28 07:28 | disposition home or self-care (01) ==
LOC: HO.LAB 07:27
PROVIDERS: Visit Provider Internal Medicine
DX: Z20.822 Contact with and (suspected) exposure to COVID-19 (principal)
CPT/HCPCS: 36415; 87635; C9803

== ENCOUNTER 2021-05-13 06:51 | Outpatient (REF) | payer OTHER, MEDICAID, SELFPAY ==
[2021-05-13 15:53] LABS: HCG Quantitative < 2 mIU/mL
== END 2021-05-13 06:52 | disposition home or self-care (01) ==
LOC: HO.LAB 06:51
PROVIDERS: PCP Nurse Practitioner; Visit Provider Nurse Practitioner
DX: Z32.01 Encounter for pregnancy test, result positive (principal)
CPT/HCPCS: 36415; 84702

== ENCOUNTER → 2021-05-26 15:05 | Outpatient (BNVA) | payer MEDICAID, SELFPAY | PROVIDERS: PCP Nurse Practitioner; Visit Provider Obstetrics & Gynecology | DX: N91.2 Amenorrhea, unspecified (principal) | CPT/HCPCS: 99212 ==

== ENCOUNTER → 2021-06-09 11:28 | Outpatient (BNVA) | payer OTHER, SELFPAY | PROVIDERS: Visit Provider Obstetrics & Gynecology | DX: N91.2 Amenorrhea, unspecified (principal); Z79.899 Other long term (current) drug therapy | CPT/HCPCS: Q3014 ==

== ENCOUNTER 2021-06-10 10:57 | Outpatient (REF) | payer OTHER, SELFPAY ==
[2021-06-10 13:51] LABS: HCG Quantitative < 2 mIU/mL
== END 2021-06-10 10:58 | disposition home or self-care (01) ==
LOC: HO.LAB 10:57
PROVIDERS: PCP Nurse Practitioner; Visit Provider Obstetrics & Gynecology
DX: N64.3 Galactorrhea not associated with childbirth (principal); N91.2 Amenorrhea, unspecified
CPT/HCPCS: 36415; 84702

== ENCOUNTER 2021-06-15 12:11 | Outpatient (REF) | payer OTHER, SELFPAY ==
[2021-06-17 02:22] LABS: Prolactin 5.5 ng/mL
== END 2021-06-15 12:12 | disposition home or self-care (01) ==
LOC: HO.LAB 12:11
PROVIDERS: PCP Obstetrics & Gynecology; Visit Provider Obstetrics & Gynecology
DX: N64.3 Galactorrhea not associated with childbirth (principal); N91.2 Amenorrhea, unspecified
CPT/HCPCS: 36415; 84146; 84443

== ENCOUNTER → 2021-07-07 13:12 | Outpatient (BNVA) | payer OTHER, SELFPAY | PROVIDERS: PCP Obstetrics & Gynecology; Visit Provider Physician Assistant | DX: Z13.89 Encounter for screening for other disorder (principal) ==

== ENCOUNTER 2021-07-08 06:21 | Outpatient (REF) | payer OTHER, SELFPAY ==
[2021-07-08 06:32] LABS: MANUAL DIFF FLAG NO
[2021-07-08 07:21] LABS: Basophils Percent Auto 0.3 % (0-2); Eosinophils Absolute Auto 0.2 X10*3/uL (0.0-0.4); Eosinophils Percent Auto 2.8 % (0-4); Hematocrit 37.5 % (37.0-47.0); Hemoglobin 12.5 g/dl (12.0-16.0); Imm Gran Abs Auto 0.02 X10*3/uL (0.00-0.03); Imm Gran Pct Auto 0.3 % (0.0-0.4); Lymphocytes Absolute Auto 1.6 X10*3/uL (1.2-4.9); Lymphocytes Percent Auto 25.9 % (20-40); Mean Corpuscular HGB Conc 33.3 g/dl (31.0-35.0); Mean Corpuscular Hemoglobin 29.1 pg (27.0-33.0); Mean Corpuscular Volume 87.4 fL (80.0-98.0); Mean Platelet Volume 9.5 fL (9.4-12.3); Monocytes Absolute Auto 0.5 X10*3/uL (0.1-1.2); Monocytes Percent Auto 8.1 % (2-11); Neutrophils Absolute Auto 3.9 x10*3/uL (2.0-8.3); Neutrophils Percent Auto 62.6 % (45-73); Platelet Count 326 X10*3/uL (160-400); Red Blood Count 4.29 X10*6/uL (4.20-5.50); Red Cell Distribution Width 12.7 % (11.0-16.0); White Blood Count 6.2 X10*3/uL (4.8-10.8)
[2021-07-08 07:49] LABS: Alanine Aminotransferase 12 U/L (0-31); Albumin Level 4.3 g/dL (3.5-5.0); Alkaline Phosphatase 62 U/L (39-117); Anion Gap 11 (12-20); Aspartate Amino Transferase 12 U/L (5-31); Bilirubin Total 0.6 mg/dL (0.0-1.0); Blood Urea Nitrogen 11 mg/dL (9-16); Calcium 9.6 mg/dL (8.4-10.2); Carbon Dioxide 26 mmol/L (22-29); Chloride 103 mmol/L (96-108); Estimated Glomerular Filt Rate > 60; Glucose Random 113 mg/dL (60-115); Lipase 31 U/L (8-78); Potassium 4.3 mmol/L (3.3-5.1); Sodium 136 mmol/L (135-145); Total Protein 7.1 g/dL (6.5-8.0)
== END 2021-07-08 06:22 | disposition home or self-care (01) ==
LOC: HO.LAB 06:21
PROVIDERS: PCP Nurse Practitioner; Visit Provider Physician Assistant
DX: R10.9 Unspecified abdominal pain (principal); K21.9 Gastro-esophageal reflux disease without esophagitis
CPT/HCPCS: 36415; 80053; 83690; 85025

== ENCOUNTER → 2021-07-14 15:19 | Outpatient (BNVA) | payer OTHER, SELFPAY | PROVIDERS: Visit Provider Obstetrics & Gynecology | DX: Z13.89 Encounter for screening for other disorder (principal) ==

== ENCOUNTER 2022-04-09 08:25 | Outpatient (REF) | payer OTHER, SELFPAY ==
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
== END 2022-04-09 08:26 | disposition home or self-care (01) ==
LOC: HO.XRAY 08:25
PROVIDERS: PCP Nurse Practitioner Primary Care; Visit Provider Nurse Practitioner Primary Care
DX: M25.562 Pain in left knee (principal)
CPT/HCPCS: 73562

== ENCOUNTER 2022-05-25 15:00 | Outpatient (RCR) | payer OTHER, SELFPAY ==
[2022-04-26 08:02] VITALS: BP 115/68; PULSE 91
== END 2022-05-31 08:23 | disposition home or self-care (01) ==
LOC: HO.PT 15:00
PROVIDERS: PCP Nurse Practitioner Primary Care; Visit Provider Nurse Practitioner Primary Care
DX: M25.562 Pain in left knee (principal); M25.512 Pain in left shoulder
CPT/HCPCS: 97110; 97112; 97162

== ENCOUNTER 2022-06-21 14:29 | Outpatient (REF) | payer OTHER, SELFPAY | END 2022-06-21 14:30 | disposition home or self-care (01) | LOC: HO.HOSX 14:29 | PROVIDERS: Visit Provider Physician Assistant | DX: Z13.89 Encounter for screening for other disorder (principal) ==

== ENCOUNTER → 2022-07-20 14:39 | Outpatient (BNVA) | payer OTHER, SELFPAY | PROVIDERS: PCP Nurse Practitioner Primary Care; Visit Provider Physician Assistant | DX: M25.562 Pain in left knee (principal); S80.02XA Contusion of left knee, initial encounter; V89.0XXA Person injured in unspecified motor-vehicle accident, nontraffic, initial encounter; Y93.9 Activity, unspecified; Y92.9 Unspecified place or not applicable; Y99.9 Unspecified external cause status | CPT/HCPCS: 99202 ==

== ENCOUNTER 2022-08-11 14:21 | Outpatient (REF) | payer OTHER, SELFPAY ==
--- NOTE | ~2022-08-11 | MR_ITS ---
EXAMINATION: MR KNEE WITHOUT CONTRAST, LEFT CLINICAL INFORMATION: Contusion of left knee, initial encounter. Knee pain. S80.02XA COMPARISON: Radiograph dated 04/09/2022 TECHNIQUE: MRI of the knee without contrast was performed using routine sequences on a high-field scanner. FINDINGS: MENISCI: Medial Meniscus: Intact. Lateral Meniscus: Intact. LIGAMENTS: Cruciate: Intact. Collateral: Intact. EXTENSOR MECHANISM: Quadriceps and patellar tendons are intact. MPFL appears stretched without appreciable findings of an acute tear or defect. Quadriceps, and patellar, and Hoffa's fat pads are normal. IT band is normal in appearance. ARTICULAR CARTILAGE/BONE: Patellofemoral Compartment: Slight lateral patellar tilt and lateral patellar translation are apparent in this fully extended position. TT-TG distance measures 1.3 cm, within normal limits. Lateral trochlear inclination angle measures 15 degrees, within normal limits. Sulcus angle is normal. Medial Compartment: Normal. Lateral Compartment: Normal. JOINT FLUID AND BURSAE: Trace joint effusion. No significant Nevarez's cyst. No loose bodies. No bursitis. MR/MR knee LT wo con IMPRESSION: 1. Intact menisci and ligaments. No acute osseous abnormalities or significant chondral injuries. 2. Trace joint effusion.
== END 2022-08-11 14:22 | disposition home or self-care (01) ==
LOC: HO.MRI 14:21
PROVIDERS: PCP Nurse Practitioner Primary Care; Visit Provider Physician Assistant
DX: S80.02XA Contusion of left knee, initial encounter (principal)
CPT/HCPCS: 73721

== ENCOUNTER 2022-08-19 07:53 | Outpatient (REF) | payer OTHER, SELFPAY | END 2022-08-19 07:54 | disposition home or self-care (01) | LOC: HO.HOSX 07:53 | PROVIDERS: Visit Provider Physician Assistant | DX: Z13.89 Encounter for screening for other disorder (principal) ==

== ENCOUNTER 2022-11-01 12:38 | Outpatient (REF) | payer OTHER, SELFPAY ==
[2022-11-01 15:42] LABS: HCG Quantitative 11995 mIU/mL
== END 2022-11-01 12:39 | disposition home or self-care (01) ==
LOC: HO.LAB 12:38
PROVIDERS: PCP Nurse Practitioner Primary Care; Visit Provider Obstetrics & Gynecology
DX: N91.2 Amenorrhea, unspecified (principal); N92.6 Irregular menstruation, unspecified
CPT/HCPCS: 36415; 84702

== ENCOUNTER 2022-11-05 13:21 | Outpatient (REF) | payer OTHER, SELFPAY ==
--- NOTE | ~2022-11-05 | US_ITS ---
EXAMINATION: US OBSTETRICAL ULTRASOUND CLINICAL INFORMATION: Irregular menstruation. COMPARISON: None available. LMP: Unknown. Gestational age by maternal dates is unknown. Estimated date of delivery by maternal dates is unknown. TECHNIQUE: Transabdominal and transvaginal imaging of pelvis is performed. FINDINGS: There is a single intrauterine gestational sac and yolk sac. No visible pole or heart beat. The distal sac measures 1.32 cm There is hypoechoic left fundal lesion likely fibroid measuring 1.9 x 1.2 x 1.9 cm. MATERNAL ADNEXA: The right maternal ovary measures 2.5 x 1.8 x 2.7 cm. The left maternal ovary measures 3.2 x 2.4 x 2.8 cm. There is anechoic corpus luteal cyst measuring 2.2 x 1.8 x 1.9 cm. There is no significant maternal adnexal mass. No maternal pelvic ascites. US/US OB pelvic and transvaginal IMPRESSION: There is a single intrauterine gestational sac and yolk sac but no pole seen. The disc levels sac measurements correspond to 6 weeks and 1 day. No heart beat visualized. This could be too early in and a follow-up ultrasound in 2-4 weeks is recommended. Suspect left fundal uterine fibroid. Corpus luteal cyst left ovary.
== END 2022-11-05 13:22 | disposition home or self-care (01) ==
LOC: HO.US 13:21
PROVIDERS: PCP Nurse Practitioner Primary Care; Visit Provider Obstetrics & Gynecology
DX: Z34.91 Encounter for supervision of normal pregnancy, unspecified, first trimester (principal); Z3A.01 Less than 8 weeks gestation of pregnancy
CPT/HCPCS: 76801; 76817

== ENCOUNTER 2022-11-11 14:37 | Outpatient (AMB) | payer OTHER, SELFPAY ==
--- NOTE | 2022-11-11 14:41 | A.OFFVIS_ITS ---
Intake Vital Signs 11/11/22 14:44 Height 5 ft 6 in Weight 156 lb BMI 25.2 BP 114/62 Intake Visit Reasons: u/s results Languages And Literature Instructor Required: No Allergies kiwi [KIWI] Allergy (Severe, Verified 11/11/22 14:44) ANAPHYLAXIS mushroom Allergy (Severe, Verified 11/11/22 14:44) Anaphylaxis Is last menstrual period known: Yes Last menstrual period: 09/25/22 Post menopausal: No HPI HPI Comments History of Present Illness Details Presenting for follow-up ultrasound with no complaints no pelvic pressure pain or vaginal bleeding. On vitamin 1 tablet p.o. q.d.. Pelvic ultrasound showed the following: There is a single intrauterine gestational sac and yolk sac. No visible pole or heart beat. The distal sac measures 1.32 cm There is hypoechoic left fundal lesion likely fibroid measuring 1.9 x 1.2 x 1.9 cm. MATERNAL ADNEXA: ? ? The right maternal ovary measures 2.5 x 1.8 x 2.7 cm.? The left maternal ovary measures 3.2 x 2.4 x 2.8 cm.? There is anechoic corpus luteal cyst measuring 2.2 x 1.8 x 1.9 cm. There is no significant maternal adnexal mass.? No maternal pelvic ascites. [facility] Medical History Achalasia Acid reflux Esophagitis No known health problems Surgical History History of laparoscopic cholecystectomy Previous section Family History Family/Other No problems noted. 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 Reproductive History Menstrual Age of Menarche: 9 Date of last menstrual period: 09/25/22 control method: none Review of Systems Const All systems reviewed & are unremarkable except as noted in HPI and below Reports as per HPI and Reports no additional complaints GI Reports no additional complaints Reports no additional complaints Physical Exam Vital Signs: Last Vital Signs BP 114/62 11/11/22 14:44 BMI result Body Mass Index 25.2 Assessment & Plan Assessment & Plan (1) Early stage of : Code(s): Z34.90 - Encounter for supervision of normal , unspecified, unspecified trimester Plan: Discussed with the patient the finding on ultrasound, recommended repeat ultrasound 2 weeks from previous ultra . The patient stated has she was seen for appointment at [place] where she had her 2 previous C-sections and she was counseled about the risk of repeat given her previous history of extensive adhesions in her last and she was offered to consider different options including termination of . The patient is contemplating this option and has a follow-up appointment in few days. MILAGROS cope given the patient, she is to call or go to emergency room in case of vaginal bleeding and/ or pelvic pain. vitamin tablet p.o. q.d.. All questions answered, the patient verbalized understanding. Coding Level of Care Code Est Pt Level 3 (65548) Diagnoses Early stage of Z34.90
[2022-11-11 14:44] VITALS: BP 114/62; BMI 25.2
== END 2022-11-12 08:43 | disposition home or self-care (01) ==
LOC: HO.HWS 14:37
PROVIDERS: PCP Nurse Practitioner Primary Care; Visit Provider Obstetrics & Gynecology
DX: Z34.90 Encounter for supervision of normal pregnancy, unspecified, unspecified trimester (principal)
CPT/HCPCS: 99213

== ENCOUNTER → 2022-11-11 14:37 | Outpatient (BNVA) | payer OTHER, SELFPAY | PROVIDERS: PCP Nurse Practitioner Primary Care; Visit Provider Obstetrics & Gynecology ==